=== PATIENT | female | born 1960 | race Caucasian/White ===

== ENCOUNTER 2016-11-15 13:27 | Emergency (ER) | payer BC ==
[2016-11-15 14:26] VITALS: BP 124/69
--- NOTE | 2016-11-15 17:20 | RAD ---
INDICATION: Low back pain COMPARISON: CT July 15, 2015 TECHNIQUE: Noncontrast axial source images were obtained from the hemidiaphragms to the symphysis pubis with coronal and sagittal reconstructions. This examination was ordered using a renal stone protocol which is performed without oral or intravenous contrast and therefore has inherent limitations when used to evaluate other intra-abdominal or intrapelvic pathology. Consider conventional contrast enhanced imaging if clinically indicated. Lung bases: The lung bases are clear. Liver: The liver is normal in size. There are no masses. There is no ductal dilatation. Gallbladder: There are no calcified gallstones. There is no evidence of wall thickening or pericholecystic fluid. Spleen: The spleen is normal in size. There are no masses. Pancreas: There is no focal pancreatic mass or ductal dilatation. Adrenal glands: There is no evidence of adrenal mass. Kidneys: The kidneys are normal in size and position. There are prompt nephrograms and there is prompt excretion bilaterally. There are no renal parenchymal masses. There is no evidence of nephrolithiasis. Adenopathy: There is no evidence of adenopathy by size criteria. Fluid collections: There are no free or localized fluid collections. Vessels:There are atherosclerotic changes involving the aorta and iliac vessels. There is no focal aneurysm. The IVC appears normal. GI tract: There are no acute CT bowel findings. There is no obstruction. The stomach and small bowel appear normal. There are colonic diverticula but no CT evidence of diverticulitis. The appendix is visualized and appear normal. Pelvic organs: Hysterectomy. No adnexal mass Bladder: There are no bladder masses. Abdominal and pelvic soft tissues: The extraperitoneal abdominal and pelvic soft tissues appear normal.. Osseous structures: There are no acute osseous findings. Other: None IMPRESSION: NONCONTRAST IMAGING DEMONSTRATES NO ACUTE CT FINDINGS. THERE ARE SCATTERED DIVERTICULA OF THE SIGMOID COLON BUT NO CT EVIDENCE OF ACUTE DIVERTICULITIS
--- NOTE | 2016-11-15 21:17 | UC ---
Donny Arango Janilya, scribed for Karina Nowak MD on 11/15/16 at 1448 . Back Pain HPI - HPI Summary HPI Summary: A 56 y/o came it to [facility] presenting w/ a left sided flank pain starting last night as a dull and achy discomfort. The pt was able to sleep without any difficulty. However, the pain worsened this morning and the pain was the most severe at lunchtime. Pt reports having chills, feeling uncomfortable and "clammy" warm starting today. Pertinent negatives include fever, CP, dysuria, hematuria, blood in stool. Pt uses inhaler , muscle relaxer for shoulder pain, pro-biotics, and essential oils. SHx tobacco use. Denies dysuria / pyuria / phi hematuria. No n/v/d. No rash. No sob / cp / palpitations. No recent injury. States was able to work today, but became difficult. PMHx diverticulitis. "This doesn't feel like diverticulitis." - History of Current Complaint Chief Complaint: UCBackPain Stated Complaint: BACK PAIN Hx Obtained From: Patient Hx Last Menstrual Period: 1988 Onset/Duration: Sudden Onset, Lasting Hours, Still Present Timing: Constant Severity Initially: Moderate Severity Currently: Moderate Character: Dull, Aching Associated Signs And Symptoms: Positive: Flank Pain. Negative: Fever - Risk Factors AAA Risk Factors: Negative TAD Risk Factors: Negative Cauda Equina Risk Factors: Negative Epidural Abscess Risk Factors: Negative - Allergies/Home Medications Allergies/Adverse Reactions: Allergies Allergy/AdvReac Type Severity Reaction Status Date / Time Ethanol [From Atrovent HFA] Allergy Severe DIFFICULTY Verified 10/06/15 11:01 BREATHING, COUGHING Penicillin V Allergy Severe See Comment Verified 10/06/15 11:01 [From Penicillin VK Potassium] Penicillins Allergy Severe KIDNEY Verified 10/06/15 11:01 FAILURE Shellfish Allergy Allergy Severe See Comment Verified 10/06/15 11:01 Sulfa Drugs Allergy Severe Anaphylatic Verified 10/06/15 11:01 Shock Aspirin Allergy Intermediate See Comment Verified 10/06/15 11:01 BEE STINGS Allergy Severe THROAT Uncoded 10/06/15 11:01 SWELLS, HIVES SOME FLU VACCINE Allergy Severe NAUSEA,VOMI Uncoded 10/06/15 11:01 TING,HIVES Home Medications: Home Medications Hyaluronic Acid-Vitamin C [Hyaluronic Acid 20-60 mg] 1 cap PO 11/15/16 [History] PMH/Surg Hx/FS Hx/Imm Hx Previously Healthy: No - see below. Endocrine History Of: Denies: Thyroid Disease Cardiovascular History Of: Denies: Cardiac Disorders, Hypertension, Congestive Heart Failure Respiratory History Of: Reports: Pneumonia Denies: COPD, Asthma GI/ History Of: Denies: Ulcer, Renal Disease - Surgical History Surgical History: Yes Surgery Procedure, Year, and Place: 1988 hysterectomy r/t tumors benign [facility]. 1988 right neck lump benign [facility]. 1978,1982 csection x 2, [facility]. 2012 hiatal hernia- [facility]. 2003 BILAT CATARACT- [facility]. R elbow surgery. R elbow surgery - Family History Known Family History: Negative: Other - JOINT LAXITY - Social History Occupation: Employed Full-time Alcohol Use: None Substance Use Type: None Smoking Status (MU): Light Every Day Tobacco Smoker Type: Cigarettes Amount Used/How Often: 10 CIGS/DAY CURRENTLY, HEAVY SMOKER FOR 47 YRS Length of Time of Smoking/Using Tobacco: 47 YRS Have You Smoked in the Last Year: Yes When Did the Patient Quit Smoking/Using Tobacco: QUIT FOR 4 MONTHS AT ONE POINT Household Exposure Type: Cigarettes - Immunization History Most Recent Influenza Vaccination: Allergy Most Recent Tetanus Shot: 2009 Most Recent Pneumonia Vaccination: never Review of Systems Constitutional: Negative - pt denies fever, Chills, Other - "clammy" warm and uncomfortable Skin: Negative Eyes: Negative ENT: Negative Respiratory: Negative Cardiovascular: Negative - pt denies chest pain Gastrointestinal: Other - see hpi Genitourinary: Other - see hpi Motor: Negative Neurovascular: Negative Musculoskeletal: Arthralgia - back pain, Myalgia - back pain Neurological: Negative Psychological: Negative All Other Systems Reviewed And Are Negative: Yes Physical Exam Triage Information Reviewed: Yes Appearance: Well-Nourished - looks uncomfortable. But nontoxic appearance. NAD. Vital Signs: Initial Vital Signs Temp 97.9 F 11/15/16 14:24 Pulse 86 11/15/16 14:24 Resp 18 11/15/16 14:24 BP 124/69 11/15/16 14:24 Pulse Ox 99 11/15/16 14:24 Vital Signs Reviewed: Yes Eye Exam: Normal ENT Exam: Normal Neck exam: Normal, Other - No adenopathy appreciated Neck: Positive: Supple Respiratory Exam: Normal - No dyspnea, no tachypnea, normal respiratory rate Respiratory: Positive: Chest non-tender, Lungs clear, Normal breath sounds, No respiratory distress, No accessory muscle use Cardiovascular Exam: Normal - Heart rate regular, good general skin color, good capillary refill Cardiovascular: Positive: RRR, No Murmur, Pulses Normal, Brisk Capillary Refill Abdominal Exam: Other Abdomen Description: Positive: Nontender, No Organomegaly, Soft, Other: - tender left flank, radiates to left lower abd No r/g + nabs. abd soft. ND. NT. Bowel Sounds: Positive: Present Musculoskeletal Exam: Other - left lower back pain and tenderness Neurological Exam: Normal - Nonfocal, grossly intact Psychological Exam: Normal - nonfocal, grossly intact Skin Exam: Normal - no reported or visible rashes Diagnostics - Radiology abd/pel CT Xray Interpretation: No Acute Changes Radiology Interpretation Completed By: Radiologist - IMPRESSION: NONCONTRAST IMAGING DEMONSTRATES NO ACUTE CT FINDINGS. THERE ARE SCATTERED DIVERTICULA OF THE SIGMOID COLON BUT NO CT EVIDENCE OF ACUTE DIVERTICULITIS Back Pain Course/Dx - Course Course Of Treatment: No new problems while in [facility]. Pt did urinate twice while here. Pain resolved during the course of her stay. Declined analgesics here ( or to go home). Just as CT report was available, she decided to depart. As such, I reviewed her d/c instructions via telephone (18:35 approx), and they were placed in the mail. Reviewed urine dip, cx sent. Will start cipro, pending f/u with primary care physician, and cx result. She expresses understanding and agreement. She recalls that she has taken cipro in the past, w/o difficulty. Ms. Diaz was given the opportunity to ask several insightful questions to which I answered to the best of my ability. She expresses understanding and gratitude for her care. 16:50 CT report pending. Radiology called, regarding status of CT report (not back yet). 17:30 CT report available. Ms. Diaz will seek medical attention for any worse, new problems. She plans to call pcp on Friday to arrange f/u this week. Ms. Diaz was offered a note for work, but she respectfully but firmly declined. - Differential Dx/Diagnosis Differential Diagnosis/HQI/PQRI: Other - kidney stone, kidney infection Provider Diagnoses: acute L flank pain. Possible urine infection. See above Discharge - Discharge Plan Condition: Stable Disposition: AGAINST MEDICAL ADVICE Prescriptions: Ciprofloxacin TAB* [Cipro Tab*] 500 mg PO BID #14 tab Patient Education Materials: How to Stop Smoking (ED), Hematuria (ED), Flank Pain (ED) Referrals: Shannan Krishnamurthy MD [Primary Care Provider] - Additional Instructions: Drink plenty of water. Please follow up with Dr. Shannan Krishnamurthy next week. Call on Friday to schedule a follow up appointment. Seek medical attention sooner for worse or new problems. You have a urine culture in the lab. The documentation as recorded by the Donny murillo Janilya accurately reflects the service I personally performed and the decisions made by me, Karina Nowak MD.
== END 2016-11-15 17:56 | disposition left against medical advice (07) ==
LOC: UCEAST 13:27
DX: M54.5 Low back pain (principal); K57.30 Diverticulosis of large intestine without perforation or abscess without bleeding; Z88.6 Allergy status to analgesic agent; Z88.0 Allergy status to penicillin; Z88.2 Allergy status to sulfonamides; Z88.7 Allergy status to serum and vaccine; F17.210 Nicotine dependence, cigarettes, uncomplicated
CPT/HCPCS: 74176; 81002; 87086; 99212; G0463

== ENCOUNTER 2017-03-31 09:12 | Emergency (ER) | payer BC, OTHER ==
[2017-03-31 11:11] VITALS: BP 106/78
[2017-03-31] MEDS ORDERED: Meclizine TAB* 12.5 MG PO ONE ×4 (12:51→13:13)
--- NOTE | 2017-05-02 19:10 | UC ---
Dizzy HPI HPI Summary: pt p/w nasal congestion and earache that started today. pt states that she had episodes of dizziness, cp and sob over the past couple of days. pt also reports episode of near syncope today and last night. - History Of Current Complaint Chief Complaint: UCEar Stated Complaint: COLD SYMPTOMS/EAR PAIN Time Seen by Provider: 03/31/17 11:10 Hx Obtained From: Patient Hx Last Menstrual Period: 1988 ?: No Onset/Duration: Sudden Onset, Lasting Hours - ear ache and congestion, Lasting Days - cp, dizziness, sob, Still Present Timing: Constant - ear ache and congestion. cpsob, dizziness have been internittant Severity Initially: Moderate Severity Currently: Moderate Pain Intensity: 4 Pain Scale Used: 0-10 Numeric Character: Lightheaded, Dizzy Aggravating Factor(s): Exertion, Position Change Alleviating Factor(s): Rest Associated Signs And Symptoms: Positive: Chest Pain, SOB. Negative: Nausea, Vomiting, Diaphoresis, Unsteady Gait, Decreased Oral Intake, Change In Medication, Change In Diet - Risk Factors Cardiac Risk Factors: Hypertension, Smoking, Family History CVA Risk Factor: Hypertension, Smoking - Allergies/Home Medications Allergies/Adverse Reactions: Allergies Allergy/AdvReac Type Severity Reaction Status Date / Time Ethanol [From Atrovent HFA] Allergy Severe DIFFICULTY Verified 03/31/17 11:03 BREATHING, COUGHING Penicillin V Allergy Severe See Comment Verified 03/31/17 11:03 [From Penicillin VK Potassium] Penicillins Allergy Severe KIDNEY Verified 03/31/17 11:03 FAILURE Shellfish Allergy Allergy Severe See Comment Verified 03/31/17 11:03 Sulfa Drugs Allergy Severe Anaphylatic Verified 03/31/17 11:03 Shock Aspirin Allergy Intermediate See Comment Verified 03/31/17 11:03 BEE STINGS Allergy Severe THROAT Uncoded 03/31/17 11:03 SWELLS, HIVES SOME FLU VACCINE Allergy Severe NAUSEA,VOMI Uncoded 03/31/17 11:03 TING,HIVES Home Medications: Home Medications Acetaminophen W/ Codeine [Acetaminophen/Codeine #3 300-30 mg] 0.5 tab PO Q6H PRN 03/31/17 [History Confirmed 03/31/17] PMH/Surg Hx/FS Hx/Imm Hx Endocrine History: Diabetes GI/ History: Diverticulitis - Surgical History Surgical History: Yes Surgery Procedure, Year, and Place: 1988 hysterectomy r/t tumors benign [facility]. 1988 right neck lump benign [facility]. 1978,1982 csection x 2, [facility]. 2012 hiatal hernia- [facility]. 2003 BILAT CATARACT- [facility]. R elbow surgery - Family History Known Family History: Negative: Cardiac Disease, Hypertension, Diabetes, Other - JOINT LAXITY - Social History Alcohol Use: None Substance Use Type: None Smoking Status (MU): Light Every Day Tobacco Smoker Type: Cigarettes Amount Used/How Often: 5-10 CIGS/DAY CURRENTLY, HEAVY SMOKER FOR 47 YRS Length of Time of Smoking/Using Tobacco: 47 YRS Have You Smoked in the Last Year: Yes When Did the Patient Quit Smoking/Using Tobacco: QUIT FOR 4 MONTHS AT ONE POINT Household Exposure Type: Cigarettes Cessation Counseling: Counseled 3+Min - 10 Min - Immunization History Most Recent Influenza Vaccination: Allergy Most Recent Tetanus Shot: 2009 Most Recent Pneumonia Vaccination: never Review of Systems Constitutional: Negative Skin: Negative Eyes: Negative ENT: Ear Ache, Sinus Congestion, Sinus Pain/Tenderness Respiratory: Shortness Of Breath Cardiovascular: Chest Pain Gastrointestinal: Negative Motor: Negative Musculoskeletal: Negative Neurological: Other - dizzy All Other Systems Reviewed And Are Negative: Yes Physical Exam Triage Information Reviewed: Yes Appearance: Well-Appearing, No Pain Distress, Well-Nourished Vital Signs: Initial Vital Signs Temp 98.1 F 03/31/17 11:07 Pulse 78 03/31/17 11:07 Resp 16 03/31/17 11:07 BP 106/78 03/31/17 11:07 Pulse Ox 98 03/31/17 11:07 Vital Signs Reviewed: Yes Eyes: Positive: Conjunctiva Clear. Negative: Discharge ENT: Positive: Hearing grossly normal, Pharynx normal, Nasal congestion, Nasal drainage, TMs normal, Other: - sinus tenderness. Negative: Tonsillar swelling, Tonsillar exudate, Trismus, Muffled/hoarse voice Neck: Positive: Supple, Nontender, No Lymphadenopathy Respiratory: Positive: Lungs clear, Normal breath sounds, No respiratory distress, No accessory muscle use Cardiovascular: Positive: RRR, No Murmur Musculoskeletal Exam: Normal Neurological: Positive: Alert, Muscle Tone Normal, Other: - aox3, strength, sensation, reflexes intact bl, cn2-12 intact, no cerebellar signs. Psychological: Positive: Age Appropriate Behavior Skin Exam: Normal Dizzy Course/Dx - Differential Dx/Diagnosis Differential Diagnosis/HQI/PQRI: Coronary Artery Disease, Myocardial Infarction , Vasovagal Reaction, Other - sinusitis, om, otitis externa, cerumen impaction Provider Diagnoses: dyspnea, dizziness, cp, near syncope Discharge - Discharge Plan Condition: Guarded Disposition: AGAINST MEDICAL ADVICE Patient Education Materials: Dyspnea (ED), Near Syncope (ED), Lightheadedness ( ED), Serous Otitis Media (ED) Forms: *Work Release Referrals: Shannan Krishnamurthy MD [Primary Care Provider] - As Soon As Possible Reginald Gonzalez MD [Medical Doctor] - (FOLLOW UP IN 3-5 DAYS) Additional Instructions: YOU ARE LEAVING AGAINST MEDICAL ADVISE. WE HAVE RECOMMENDED TRANSFER TO THE ED FOR THOROUGH EVALUATION OF YOUR CHEST PAIN. YOU HAVE REFUSED. YOUR RISKS INCLUDE DAMAGE TO THE HEART, CARDIAC ARRHYTHMIA, CARDIAC ARREST, PERMANENT NEUROLOGICAL DEFICIT AND . IF YOU CHANGE YOUR MIND, YOU CAN STILL GO TO THE ED AT ANY TIME. WE RECOMMEND THAT YOU GO BY AMBULANCE
== END 2017-03-31 13:22 | disposition left against medical advice (07) ==
LOC: UCCORT 09:12
DX: R06.00 Dyspnea, unspecified (principal); R42 Dizziness and giddiness; R07.89 Other chest pain; R55 Syncope and collapse; E11.9 Type 2 diabetes mellitus without complications; Z90.710 Acquired absence of both cervix and uterus; Z98.42 Cataract extraction status, left eye; Z98.41 Cataract extraction status, right eye; Z88.2 Allergy status to sulfonamides; Z88.7 Allergy status to serum and vaccine; Z91.030 Bee allergy status; Z88.6 Allergy status to analgesic agent; Z88.0 Allergy status to penicillin; Z91.013 Allergy to seafood; F17.210 Nicotine dependence, cigarettes, uncomplicated; Z71.6 Tobacco abuse counseling
CPT/HCPCS: 93005; 99212; A9270-GY; G0463

== ENCOUNTER 2017-06-10 18:38 | Emergency (ER) | payer OTHER ==
--- NOTE | 2017-06-10 19:38 | RAD ---
INDICATION: Right elbow injury. TECHNIQUE: 4 views of the right elbow were obtained. FINDINGS: The bones are in normal alignment. No joint effusion or fracture is seen. Joint spaces appear maintained. IMPRESSION: NO EVIDENCE FOR FRACTURE.
[2017-06-10] MEDS ORDERED: HYDROcodone/ACETAMIN 5-325 MG* 1 TAB PO ONE (19:57)
--- NOTE | 2017-06-10 20:40 | UC ---
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 - History of Current Complaint Chief Complaint: UCUpperExtremity Stated Complaint: ELBOW REINJURED WC Time Seen by Provider: 06/10/17 19:22 Hx Obtained From: Patient Hx Last Menstrual Period: 1988 Onset/Duration: Hours Severity Initially: Severe Severity Currently: Mild Pain Intensity: 3 Pain Scale Used: 0-10 Numeric Location Of Pain: Is Discrete @ - RIGHT ELBOW Character: Dull, Aching, Spasmodic Aggravating Factor(s): Movement Alleviating Factor(s): Rest Associated Signs And Symptoms: Positive: Numbness/Tingling. Negative: Redness, Bruising - Allergies/Home Medications Allergies/Adverse Reactions: Allergies Allergy/AdvReac Type Severity Reaction Status Date / Time Ethanol [From Atrovent HFA] Allergy Severe DIFFICULTY Verified 03/31/17 11:03 BREATHING, COUGHING Penicillin V Allergy Severe See Comment Verified 03/31/17 11:03 [From Penicillin VK Potassium] Penicillins Allergy Severe KIDNEY Verified 03/31/17 11:03 FAILURE Shellfish Allergy Allergy Severe See Comment Verified 03/31/17 11:03 Sulfa Drugs Allergy Severe Anaphylatic Verified 03/31/17 11:03 Shock Aspirin Allergy Intermediate See Comment Verified 03/31/17 11:03 BEE STINGS Allergy Severe THROAT Uncoded 03/31/17 11:03 SWELLS, HIVES SOME FLU VACCINE Allergy Severe NAUSEA,VOMI Uncoded 03/31/17 11:03 TING,HIVES PMH/Surg Hx/FS Hx/Imm Hx Previously Healthy: Yes - Surgical History Surgical History: Yes Surgery Procedure, Year, and Place: 1988 hysterectomy r/t tumors benign [facility]. 1988 right neck lump benign [facility]. 1978,1982 csection x 2, [facility]. 2013 hiatal hernia- [facility]. 2003 BILAT CATARACT- [facility]. R elbow surgery - Family History Known Family History: Positive: Unknown Negative: Other - NO JOINT LAXITY - Social History Occupation: Employed Full-time Lives: With Family Alcohol Use: None Substance Use Type: None Smoking Status (MU): Light Every Day Tobacco Smoker Type: Cigarettes Amount Used/How Often: 5-10 CIGS/DAY CURRENTLY, HEAVY SMOKER FOR 47 YRS Length of Time of Smoking/Using Tobacco: 47 YRS Have You Smoked in the Last Year: Yes When Did the Patient Quit Smoking/Using Tobacco: QUIT FOR 4 MONTHS AT ONE POINT Household Exposure Type: Cigarettes - Immunization History Most Recent Influenza Vaccination: Allergy Most Recent Tetanus Shot: 2009 Most Recent Pneumonia Vaccination: never Review of Systems Constitutional: Negative Skin: Negative Eyes: Negative ENT: Negative Respiratory: Negative Cardiovascular: Negative Gastrointestinal: Negative Genitourinary: Negative Motor: Negative Neurovascular: Negative Musculoskeletal: Arthralgia, Myalgia Neurological: Negative Psychological: Negative All Other Systems Reviewed And Are Negative: Yes Physical Exam Triage Information Reviewed: Yes Appearance: Well-Appearing, No Pain Distress, Well-Nourished Vital Signs: Initial Vital Signs Temp 97.6 F 06/10/17 18:42 Pulse 111 06/10/17 18:42 Resp 20 06/10/17 18:42 Pulse Ox 100 06/10/17 18:42 Vital Signs Reviewed: Yes Eye Exam: Normal ENT Exam: Normal ENT: Positive: Normal ENT inspection, TMs normal Dental Exam: Normal Neck exam: Normal Neck: Positive: Supple, Nontender Respiratory Exam: Normal Respiratory: Positive: Chest non-tender, Lungs clear, Normal breath sounds, No respiratory distress Cardiovascular Exam: Normal Cardiovascular: Positive: RRR, No Murmur, Pulses Normal Abdominal Exam: Normal Musculoskeletal: Positive: No Edema, Strength Limited @ - RIGHT ELBOW, ROM Limited @ - PAIN WITH FLEXION RIGHT ELBOW Neurological Exam: Normal Psychological Exam: Normal Skin Exam: Normal Elbow Pain Course/Dx - Differential Dx/Diagnosis Differential Diagnosis/HQI/PQRI: Fracture (Closed), Sprain, Strain Provider Diagnoses: RIGHT ELBOW CONTUSION/SPRAIN Discharge - Discharge Plan Condition: Stable Disposition: HOME Patient Education Materials: Contusion in Adults (ED), Elbow Sprain (ED) Forms: *Work Release Referrals: [facility] [place] [facility] [Outside] No Primary Care Phys,NOPCP [Primary Care Provider] - Aria Galeas MD [Medical Doctor] - Additional Instructions: PHYSICAL THERAPY REFERRAL: You have been prescribed physical therapy. Treatments may include stretching, exercise, application of heat or cold, and other modalities. After an injury, PT can reduce swelling and pain. In recovery, PT is used to restore mobility and strength. Your specific treatment goals are: ___X__ Reduction of Swelling (EGS, US, ice as needed) __X___ Pain Reduction (EGS, US, ice as needed) __X___ TENS Pack Fitting and Instruction Wound Hydrotherapy ___X__ Preservation of Mobility ___X__ Restorationist of Mobility ___X__ Strength Restorationist ___X__ Work or Sports Hardening This instruction sheet also serves as your PHYSICAL THERAPY REFERRAL! Please take it with you to the therapist, so he/she will be aware of your diagnosis and treatment plan. You may see the physical therapist of your choice for these treatments, but may wish to check with your insurance to be sure the provider you select is covered. It's important to see the doctor to whom you have been referred for follow up.
== END 2017-06-10 20:24 | disposition home or self-care (01) ==
LOC: UCEAST 18:38
DX: S50.01XA Contusion of right elbow, initial encounter (principal); S53.401A Unspecified sprain of right elbow, initial encounter; W22.8XXA Striking against or struck by other objects, initial encounter; Y93.9 Activity, unspecified; Y92.9 Unspecified place or not applicable; Y99.0 Civilian activity done for income or pay; Z88.0 Allergy status to penicillin; Z88.2 Allergy status to sulfonamides; Z88.7 Allergy status to serum and vaccine; Z91.030 Bee allergy status; Z91.013 Allergy to seafood; F17.210 Nicotine dependence, cigarettes, uncomplicated
CPT/HCPCS: 99212; G0463

== ENCOUNTER 2017-08-24 17:39 | Emergency (ER) | payer BC, OTHER ==
[2017-08-24 18:00] VITALS: BP 114/70
--- NOTE | 2017-08-24 18:21 | UC ---
Abdominal Pain Female HPI - HPI Summary HPI Summary: C/O worsening RUQ abdominal pain after eating. Worse in the last month. Lasting several hours after eating. - History of Current Complaint Chief Complaint: UCAbdominalPain Stated Complaint: ABDOMINAL PAIN Time Seen by Provider: 08/24/17 18:07 Hx Obtained From: Patient Hx Last Menstrual Period: 1988 Onset/Duration: Sudden Onset, Lasting Weeks - 4, Worse Since - onset Timing: Intermittent Episodes Lasting: - 2 hours. Severity Initially: Moderate Severity Currently: Mild Pain Intensity: 4 Location: Discrete At: RUQ Radiates: Yes Radiates to: Other - epigastric Character: Cramping, Sharp Aggravating Factor(s): Food Alleviating Factor(s): NPO Associated Signs and Symptoms: Positive: Nausea. Negative: Constipation, Blood in Stool, Vomiting, Diarrhea Allergies/Adverse Reactions: Allergies Allergy/AdvReac Type Severity Reaction Status Date / Time Ethanol [From Atrovent HFA] Allergy Severe DIFFICULTY Verified 08/24/17 17:47 BREATHING, COUGHING Penicillin V Allergy Severe See Comment Verified 08/24/17 17:47 [From Penicillin VK Potassium] Penicillins Allergy Severe KIDNEY Verified 08/24/17 17:47 FAILURE Shellfish Allergy Allergy Severe See Comment Verified 08/24/17 17:47 Sulfa Drugs Allergy Severe Anaphylatic Verified 08/24/17 17:47 Shock Aspirin Allergy Intermediate See Comment Verified 08/24/17 17:47 BEE STINGS Allergy Severe THROAT Uncoded 08/24/17 17:47 SWELLS, HIVES SOME FLU VACCINE Allergy Severe NAUSEA,VOMI Uncoded 08/24/17 17:47 TING,HIVES Home Medications: Home Medications HYDROcodone/ACETAMIN 5-325 MG* [[place] 5-325 TAB*] 1 tab QID PRN 08/24/17 [ History Confirmed 08/24/17] PMH/Surg Hx/FS Hx/Imm Hx Endocrine History: Diabetes - Surgical History Surgical History: Yes Surgery Procedure, Year, and Place: 1988 hysterectomy r/t tumors benign [facility]. 1988 right neck lump benign [facility]. 1978,1982 csection x 2, [facility]. 2012 hiatal hernia- [facility]. 2003 BILAT CATARACT- [facility]. R elbow surgery - Family History Known Family History: Positive: Cardiac Disease, Hypertension, Diabetes Negative: Other - NO JOINT LAXITY - Social History Occupation: Employed Full-time Lives: Alone Alcohol Use: None Substance Use Type: None Smoking Status (MU): Light Every Day Tobacco Smoker Type: Cigarettes Amount Used/How Often: 5-10 CIGS/DAY CURRENTLY, HEAVY SMOKER FOR 47 YRS Length of Time of Smoking/Using Tobacco: 47 YRS Have You Smoked in the Last Year: Yes When Did the Patient Quit Smoking/Using Tobacco: QUIT FOR 4 MONTHS AT ONE POINT Household Exposure Type: Cigarettes - Immunization History Most Recent Influenza Vaccination: Allergy Most Recent Tetanus Shot: 2009 Most Recent Pneumonia Vaccination: never Review of Systems Gastrointestinal: Abdominal Pain Is Patient Immunocompromised?: No All Other Systems Reviewed And Are Negative: Yes Physical Exam Triage Information Reviewed: Yes Appearance: Well-Appearing, No Pain Distress, Well-Nourished Vital Signs: Initial Vital Signs Temp 97.8 F 08/24/17 17:49 Pulse 98 08/24/17 17:49 Resp 16 08/24/17 17:49 BP 114/70 08/24/17 17:49 Pulse Ox 99 08/24/17 17:49 Vital Signs Reviewed: Yes ENT: Positive: Pharynx normal, TMs normal Neck exam: Normal Neck: Positive: Other: - Right lateral neck 3cm soft mobile subcutaneous nodule with overlying scar. Respiratory Exam: Normal Cardiovascular Exam: Normal Abdomen Description: Positive: Soft. Negative: Nontender - tender RUQ, Hepatomegaly, Peritoneal Signs Bowel Sounds: Positive: Hyperactive Musculoskeletal Exam: Normal Neurological Exam: Normal Psychological Exam: Normal Skin Exam: Normal Abd Pain Female Course/Dx - Differential Dx/Diagnosis Differential Diagnosis: Appendicitis, Diverticulitis, Gall Bladder Disease, Pancreatitis Provider Diagnoses: Right upper quadrant abdominal pain. Discharge - Discharge Plan Condition: Stable Disposition: HOME Patient Education Materials: Abdominal Pain (ED) Referrals: No Primary Care Phys,NOPCP [Primary Care Provider] - As Soon As Possible (for Gallbladder evaluation. ) Additional Instructions: If gallbladder ultrasound is negative make sure to get a HIDA scan. Low fat diet. Frequent small meals.
--- NOTE | 2017-08-24 18:56 | RAD ---
HISTORY: Abdominal pain, rule out small bowel obstruction COMPARISONS: CT dated November 15, 2016 VIEWS: Frontal views of the abdomen. FINDINGS: BOWEL: There is a nonspecific bowel gas pattern, with nondilated small bowel gas noted. There is a moderate amount of stool within the colon. CALCULI: There are no abnormal calculi. BONES AND SOFT TISSUES: There are no osseous abnormalities. OTHER FINDINGS: The lung bases are clear. There is no subphrenic gas. IMPRESSION: NONSPECIFIC BOWEL GAS PATTERN.
== END 2017-08-24 19:04 | disposition home or self-care (01) ==
LOC: UCCORT 17:39
DX: R10.11 Right upper quadrant pain (principal); F17.210 Nicotine dependence, cigarettes, uncomplicated; Z88.0 Allergy status to penicillin; Z88.2 Allergy status to sulfonamides; Z88.8 Allergy status to other drugs, medicaments and biological substances; Z91.013 Allergy to seafood; Z91.030 Bee allergy status; Z88.7 Allergy status to serum and vaccine
CPT/HCPCS: 74000; 99212; G0463

== ENCOUNTER 2018-08-27 20:02 | Emergency (ER) | payer BC, OTHER ==
[2018-08-27 20:29] VITALS: BP 122/86
--- NOTE | 2018-08-27 21:39 | UC ---
Back Pain HPI - HPI Summary HPI Summary: The patient is a 58-year-old female that presents here for evaluation of right sided low back pain. The pain started 2 days ago. She does a lot of heavy lifting at work. She doesn't remember any specific injury. She states her back pain seems muscular. Hurts more with any type of turning or twisting. She has severe pain when she bends. HAs no pain or paresthesias down her legs. She has had slight increased frequency of urination. She has had no incontinence. - History of Current Complaint Chief Complaint: UCBackPain Stated Complaint: BACK PAIN Time Seen by Provider: 08/27/18 21:17 Hx Obtained From: Patient Hx Last Menstrual Period: 1988 Onset/Duration: Gradual Onset Timing: Constant Severity Initially: Moderate Severity Currently: Severe Pain Intensity: 10 Pain Scale Used: 0-10 Numeric Back Pain: Is Discrete @ Character: Aching, Throbbing, Spasmodic Aggravating Factor(s): Movement, Lifting, Bending Alleviating Factor(s): Nothing Associated Signs And Symptoms: Positive: Negative - Allergies/Home Medications Allergies/Adverse Reactions: Allergies Allergy/AdvReac Type Severity Reaction Status Date / Time shellfish derived Allergy Severe Anaphylatic Verified 08/27/18 20:30 Shock Sulfa (Sulfonamide Allergy Severe Anaphylatic Verified 08/27/18 20:30 Antibiotics) Shock NSAIDS (Non-Steroidal AdvReac Severe GI Upset Verified 08/27/18 20:30 Anti-Inflamma Penicillins AdvReac Severe Kidney Verified 08/27/18 20:30 Failure aspirin AdvReac Intermediate Heart Verified 08/27/18 20:30 Races BEE STINGS Allergy Severe THROAT Uncoded 08/27/18 20:30 SWELLS, HIVES Ethanol Allergy Severe Difficulty Uncoded 08/27/18 20:30 Breathing SOME FLU VACCINE Allergy Severe NAUSEA,VOMI Uncoded 08/27/18 20:30 TING,HIVES Home Medications: Home Medications Cholecalciferol TAB* [Vitamin D TAB*] 08/27/18 [History] PMH/Surg Hx/FS Hx/Imm Hx Previously Healthy: Yes - 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 1988 right neck lump benign [facility]. 1978,1982 csection x 2, [facility]. 2013 hiatal hernia- [facility] [place]. 2004 BILAT CATARACT- [facility] [place]. 2016 RIGHT ARM SURGERY. R elbow surgery Nov 2015 - Family History Known Family History: Positive: Cardiac Disease, Hypertension, Diabetes Negative: Other - NO JOINT LAXITY - Social History Alcohol Use: None Substance Use Type: None Smoking Status (MU): Current Every Day Smoker Type: Cigarettes Amount Used/How Often: <1/2 PPD Length of Time of Smoking/Using Tobacco: 47 YRS Have You Smoked in the Last Year: Yes When Did the Patient Quit Smoking/Using Tobacco: QUIT FOR 4 MONTHS AT ONE POINT Household Exposure Type: Cigarettes - Immunization History Most Recent Influenza Vaccination: Allergy Most Recent Tetanus Shot: 2009 Most Recent Pneumonia Vaccination: never Review of Systems Constitutional: Negative Skin: Negative Eyes: Negative ENT: Negative Respiratory: Negative Cardiovascular: Negative Gastrointestinal: Negative Genitourinary: Frequency, Urgency Motor: Negative Neurovascular: Negative Musculoskeletal: Myalgia Neurological: Negative Psychological: Negative All Other Systems Reviewed And Are Negative: Yes Physical Exam Triage Information Reviewed: Yes Appearance: Well-Appearing, Pain Distress, Thin Vital Signs: Initial Vital Signs Temp 97.7 F 08/27/18 20:25 Pulse 78 08/27/18 20:25 Resp 16 08/27/18 20:25 BP 122/86 08/27/18 20:25 Pulse Ox 98 08/27/18 20:25 Vital Signs Reviewed: Yes Eyes: Positive: Conjunctiva Clear ENT: Positive: Hearing grossly normal. Negative: Nasal congestion, Nasal drainage, Trismus, Muffled voice, Hoarse voice Neck: Positive: Supple, Nontender Respiratory: Positive: Lungs clear, Normal breath sounds, No respiratory distress Cardiovascular: Positive: RRR, No Murmur Musculoskeletal: Positive: ROM Intact, No Edema Neurological: Positive: Alert, Muscle Tone Normal Psychological Exam: Normal Skin Exam: Normal Diagnostics - Laboratory Diagnostic Studies Completed/Ordered: UA tr leuk, - nitrite Back Pain Course/Dx - Differential Dx/Diagnosis Provider Diagnoses: acute lumbar myofascial strain/spasm Discharge - Sign-Out/Discharge Documenting (check all that apply): Patient Departure All imaging exams completed and their final reports reviewed: No Studies - Discharge Plan Condition: Stable Disposition: HOME Patient Education Materials: Low Back Strain (ED) Forms: *Work Release Referrals: Megan Chou MD [Primary Care Provider] - 4 Days (if not better) Additional Instructions: a urine culture is pending recheck for new or worsening symptoms - Billing Disposition and Condition Condition: STABLE Disposition: Home Images Front/Back of Body, Lg ([place]): 1 - tender here, no SLR, limited ROM
== END 2018-08-27 21:37 | disposition home or self-care (01) ==
LOC: UCEAST 20:02
DX: S39.012A Strain of muscle, fascia and tendon of lower back, initial encounter (principal); X58.XXXA Exposure to other specified factors, initial encounter; Y92.9 Unspecified place or not applicable; M62.830 Muscle spasm of back; R35.0 Frequency of micturition; Z88.2 Allergy status to sulfonamides; Z88.7 Allergy status to serum and vaccine; Z88.6 Allergy status to analgesic agent; Z91.030 Bee allergy status; Z88.0 Allergy status to penicillin; Z91.013 Allergy to seafood; F17.210 Nicotine dependence, cigarettes, uncomplicated
CPT/HCPCS: 81003; 87086; 99211; G0463

== ENCOUNTER 2019-09-01 17:34 | Emergency (ER) | payer BC, OTHER ==
[2019-09-01 17:45] VITALS: BP 125/78
--- NOTE | 2019-09-01 17:48 | UC ---
Abdominal Pain Female HPI - HPI Summary HPI Summary: 59 yo female presents with abdominal pain. She tells me that for the last few years she has had issues with abdominal pain ever since her hiatal hernia repair. Most recently over the last week she has had RUQ pain, nausea, and dry heaving. States that she gets this every once in awhile and takes "a handful a zofran" and symptoms improve. Today her pain became severe and she has increased pain with standing straight up. Has been belching a lot today with occasional dry heaves. States she had a BM this morning and has had one every morning. She last a sandwich around 1330 today. States she feels like she needs to vomit, but cannot due to "surgery". Denies fever, chills, SOB, chest pain, back pain, dysuria, blood/dark stools. - History of Current Complaint Chief Complaint: UCAbdominalPain Stated Complaint: STOMACH PAIN Time Seen by Provider: 09/01/19 17:47 Hx Obtained From: Patient Hx Last Menstrual Period: Hyster 1988 Severity Initially: Moderate Severity Currently: Severe Pain Intensity: 9 Pain Scale Used: 0-10 Numeric Allergies/Adverse Reactions: Allergies Allergy/AdvReac Type Severity Reaction Status Date / Time shellfish derived Allergy Severe Anaphylatic Verified 08/30/19 09:16 Shock Sulfa (Sulfonamide Allergy Severe Anaphylatic Verified 08/30/19 09:16 Antibiotics) Shock NSAIDS (Non-Steroidal AdvReac Severe GI Upset Verified 08/30/19 09:16 Anti-Inflamma Penicillins AdvReac Severe Kidney Verified 08/30/19 09:16 Failure aspirin AdvReac Intermediate Heart Verified 08/30/19 09:16 Races BEE STINGS Allergy Severe THROAT Uncoded 04/12/19 13:21 SWELLS, HIVES Ethanol Allergy Severe Difficulty Uncoded 04/12/19 13:21 Breathing SOME FLU VACCINE Allergy Severe NAUSEA,VOMI Uncoded 04/12/19 13:21 TING,HIVES PMH/Surg Hx/FS Hx/Imm Hx - Additional Past Medical History Additional PMH: Chronic pain - Surgical History Surgical History: Yes Surgery Procedure, Year, and Place: 1988 hysterectomy r/t tumors benign [facility]. 1988 right neck lump benign [facility]. 1978,1982 csection x 2, [facility]. 2013 hiatal hernia- [facility] [place]. 2003 BILAT CATARACT- [facility] [place]. 2016 RIGHT ARM SURGERY. R elbow surgery Nov 2015 - Family History Known Family History: Positive: Cardiac Disease, Hypertension, Diabetes Negative: Other - NO JOINT LAXITY - Social History Alcohol Use: None Substance Use Type: None Smoking Status (MU): Current Every Day Smoker Type: Cigarettes Amount Used/How Often: 1/2 PPD Length of Time of Smoking/Using Tobacco: 47 YRS Have You Smoked in the Last Year: Yes When Did the Patient Quit Smoking/Using Tobacco: QUIT FOR 4 MONTHS AT ONE POINT Household Exposure Type: Cigarettes - Immunization History Most Recent Influenza Vaccination: Allergy Most Recent Tetanus Shot: 2009 Most Recent Pneumonia Vaccination: never Review of Systems All Other Systems Reviewed And Are Negative: No Constitutional: Positive: Negative Skin: Positive: Negative Respiratory: Positive: Negative Cardiovascular: Positive: Negative Gastrointestinal: Positive: Abdominal Pain, Nausea Genitourinary: Positive: Negative Neurological: Positive: Negative Psychological: Positive: Negative Physical Exam - Summary Physical Exam Summary: GENERAL: NAD. WDWN. No pain distress. SKIN: No rashes, sores, lesions, or open wounds. NECK: Supple. Nontender. No lymphadenopathy. CHEST: CTAB. No r/r/w. No accessory muscle use. Breathing comfortably and in no distress. CV: RRR. Pulses intact. Cap refill <2seconds ABDOMEN: Moderate TTP RUQ and epigastric region. No distention or guarding. No CVA tenderness. Bowel sounds present NEURO: Alert. PSYCH: Age appropriate behavior. Triage Information Reviewed: Yes Vital Signs: Initial Vital Signs Temp 99 F 09/01/19 17:41 Pulse 89 09/01/19 17:41 Resp 18 09/01/19 17:41 BP 125/78 09/01/19 17:41 Pulse Ox 98 09/01/19 17:41 Vital Signs Reviewed: Yes Abd Pain Female Course/Dx - Course Course Of Treatment: Given her degree of pain and inability to appropriately evaluate her abdominal pain in the urgent care - recommended transfer to the ED via ambulance for further evaluation of pain for suspicion of SBO or gallbladder disease. Pt declined ambulance transfer, but agreed to have a friend drive her to the ED. She prefers to go to [place] ED. Advised that if her symptoms worsen to picker/puller and call 911 - Differential Dx/Diagnosis Provider Diagnosis: RUQ pain, Epigastric pain Discharge ED - Sign-Out/Discharge Documenting (check all that apply): Patient Departure All imaging exams completed and their final reports reviewed: No Studies - Discharge Plan Condition: Stable Disposition: HOME-RECOMMEND TO ED Referrals: No Primary Care Phys,NOPCP [Primary Care Provider] - Additional Instructions: Please go to the ER for further evaluation of your abdominal pain - Billing Disposition and Condition Condition: STABLE Disposition: Home-Recommend to ED
[2019-09-01] MEDS ORDERED: HYDROcodone/ACETAMIN 5-325 MG* 1 TAB PO ONE (18:03)
== END 2019-09-01 18:20 | disposition home health service (06) ==
LOC: UCEAST 17:34
DX: R10.11 Right upper quadrant pain (principal); R10.13 Epigastric pain; F17.210 Nicotine dependence, cigarettes, uncomplicated; G89.29 Other chronic pain; Z91.013 Allergy to seafood; Z88.2 Allergy status to sulfonamides; Z88.0 Allergy status to penicillin; Z88.6 Allergy status to analgesic agent; Z91.030 Bee allergy status; Z88.8 Allergy status to other drugs, medicaments and biological substances; Z88.7 Allergy status to serum and vaccine
CPT/HCPCS: 99212; G0463